=== PATIENT | male | born 1955 | race American Indian/Alaskan Native ===

== ENCOUNTER 2018-04-18 05:49 | Day surgery (SDC) | payer BC ==
[2018-04-05 08:15] VITALS: BMI 24.3
[2018-04-18] MEDS ORDERED: Bupivacaine 0.25% 20 ML INJ IJ ONE ×2 (07:13→09:04)
[2018-04-18] MEDS ORDERED: Lidocaine/Epinephrine 1% 1:100000 10 ML IJ ONE ×2 (07:13→12:26)
[2018-04-18] MEDS ORDERED: ceFAZolin IV 2 gm in Dextrose 2 GM/50 ML BAG IVPB ONE (07:14)
[2018-04-18] MEDS ORDERED: Midazolam 2 MG/2 ML VIAL ONE (08:00)
[2018-04-18] MEDS ORDERED: Propofol 10 mg/ml Inj (20 ML) ONE (08:00)
[2018-04-18] MEDS ORDERED: Succinylcholine Chloride 20 mg/ml Syr (5 ml) IV ONE (08:12)
[2018-04-18] MEDS ORDERED: Rocuronium 10 mg/ml (5 ml) ONE ×3 (08:12→12:04)
[2018-04-18] MEDS ORDERED: Neostigmine Methylsulfate 3mg/3ml Syringe IV ONE (12:25)
[2018-04-18] MEDS ORDERED: HYDROmorphone 0.5 mg/0.5 ml ISec IVP PRN (12:47)
--- NOTE | 2018-04-18 12:49 | PCM.SURG1 ---
Surgeon's Initial Post Op Note - Surgeon's Notes Surgeon: Beth Dental Assisting Instructor: Mil PGY4, Andrew BOSS Type of Anesthesia: General Endo, Local Pre-Operative Diagnosis: B/L inguinal hernia and umbilical hernia Operative Findings: R direct inguinal hernia, L indirect inguinal hernia, Umbilical hernia with diastasis Post-Operative Diagnosis: same Operation Performed: Robotic assisted JOSIAH B/L inguinal hernia repair w. mesh, repair of umbilcal hernia and diastasis w. mesh Specimen/Specimens Removed: hernia sac Estimated Blood Loss: EBL {In ML}: 15 Blood Products Given: N/A Drains Used: No Drains Post-Op Condition: Good Date of Surgery/Procedure: 04/18/18 Time of Surgery/Procedure: 12:50
[2018-04-18 14:36] VITALS: RESP 15; O2SAT 95
[2018-04-18] MEDS ORDERED: Oxycodone/Acetaminophen 5/325 mg Tab PO PRN (15:06)
[2018-04-18] MEDS ORDERED: Oxycodone/Acetaminophen 5/325 mg Tab ONE (15:14)
[2018-04-18 15:55] VITALS: BP 111/69; PULSE 75; TEMP 97.4
--- NOTE | 2018-04-19 00:24 | OP ---
PROCEDURE DATE: 04/18/2018 PREOPERATIVE DIAGNOSES: 1. Bilateral inguinal hernia. 2. Umbilical hernia. 3. Diastasis recti. POSTOPERATIVE DIAGNOSES: 1. Right direct inguinal hernia. 2. Left indirect inguinal hernia. 3. Lipoma of the cord bilaterally. 4. Umbilical hernia. 5. Diastasis recti, approximately 9 x 4 cm size. PROCEDURES DONE: 1. Robotic left inguinal hernia repair with a mesh. 2. Robotic right inguinal hernia repair with a mesh. 3. Robotic excision of the lipoma of the cord bilaterally. 4. Robotic umbilical hernia repair with a mesh. 5. Robotic diastasis recti repair with mesh, 9 x 4 cm size. SURGEON: Francisco Campos MD ASSISTANTS: EMMANUEL Garcia, and Shashank Jaeger, PGY-4 resident. TYPE OF ANESTHESIA: General endotracheal tube anesthesia. ESTIMATED BLOOD LOSS: Around 20 mL. DRAINS: None. PATHOLOGY: 1. The lipoma of the cord of the right and left inguinal hernial sac. 2. Umbilical hernial sac and content. 3. Preperitoneal fat of diastasis recti. COMPLICATIONS: None. INTRAOPERATIVE FINDINGS: The patient had approximately 2 x 2 cm umbilical hernia and a 9 x 4 cm diastasis recti, and the patient had left indirect inguinal hernia and right direct inguinal hernia. DESCRIPTION OF PROCEDURE: On intraoperative steps, this is a 63-year-old male who was diagnosed with bilateral inguinal hernia. The patient also had umbilical hernia and diastasis recti, and the patient was consented for the robotic bilateral inguinal hernia repair with a mesh with umbilical hernia with diastasis recti repair with the mesh, possible open, brought to the OR, placed supine on operating table. After induction of the anesthesia, the abdomen was prepped and draped in the usual sterile fashion. The left upper quadrant incision was made. Using the Visiport technique, peritoneal cavity was entered and pneumo was created. The five 8-mm ports were placed in the upper abdomen. The robot was brought in. Camera arm as well as arm 1 and 2 was ducked, and first the peritoneum was dissected from the right PSIS up to the left PSIS, and dissection was carried down deep up to the space of Retzius, and hemostasis was achieved. Laterally, the peritoneal reflection on the right side was dissected from the vas deferens, and spermatic cord vessel, and the large direct inguinal hernia on the right side was reduced back into the peritoneal cavity. There was also a lipoma of the cord that was also excised from the indirect sac, and now, the direct sac was everted, and it was tacked in the midline, and now the left peritoneal reflection was incised, and the spermatic cord vessels and the vas deferens were dissected from the peritoneal reflection. The indirect hernial sac was reduced back into the peritoneal cavity, and large lipoma of the sac was also excised and it was sent off the table for pathology. Both side inferior dissection was done up to the pelvic brim, and after that, the first left-sided mesh was implanted, and the mesh was placed, and then the right-side mesh was implanted and mesh was placed. After proper implantation of the mesh, the peritoneum was sutured with 2-0 Vicryl as well as a 3-0 V-Loc PDS continuous sutures, and after that, the robot was undocked and robot was re-docked on the left flank for umbilical hernia as well as diastasis recti, and after that, the peritoneum surrounding the umbilical hernia sac and content was excised, and it was reduced back into the peritoneal cavity. The preperitoneal fat surrounding the diastasis recti was also marked, and it was excised and it was sent off the table for pathology. The patient had approximately 9 x 4 cm diastasis recti and 2 x 2 cm umbilical hernia. The first umbilical hernia was repaired. The 2 x 2 cm defect was closed with #1 Prolene V-Loc continuous suture in two layers, and after that, the diastasis recti was also repaired with #1 Prolene V-Loc suture in continuous fashion in two layers, and after diastasis recti repair, the 14 x 8 cm large mesh was introduced, and the mesh was implanted, and after proper implantation of the mesh, the bilateral TAP block was given. After TAP block, the right and left side 30/30 mL of Marcaine was injected, and after that, the specimen was taken out through the right upper quadrant port site, and it was sent off the table for pathology. All the port was closed in two layers; subcu with 2-0 Vicryl, skin with 4-0 Monocryl. Dry, sterile dressing was applied. The patient tolerated the procedure well. Count of the instrument and gauze was correct. There was no apparent complication. The patient was extubated in the OR and sent to the postanesthesia care unit in stable condition. During the diastasis recti repair, the right and left side of the rectus muscles were marked, and the rectus muscles were mobilized medially and approximated in the midline with #1 Prolene V-Loc suture. Francisco Campos MD
== END 2018-04-18 16:00 | disposition home or self-care (01) ==
LOC: C.SDS 05:49
PROVIDERS: ATTEND Surgery Surgical Critical Care
DX: K40.20 Bilateral inguinal hernia, without obstruction or gangrene, not specified as recurrent (principal); K42.9 Umbilical hernia without obstruction or gangrene; M62.08 Separation of muscle (nontraumatic), other site; D17.6 Benign lipomatous neoplasm of spermatic cord
CPT/HCPCS: 49650; 49652; 55520; 88302; 88304; C1781; J0131; J0690; J1885; J2001; J2250; J2405; J2704; J2710; J3010

== ENCOUNTER 2018-04-20 08:49 | Emergency (ER) | payer BC ==
[2018-04-20 08:49] VITALS: BMI 24.3
[2018-04-20] MEDS ORDERED: Morphine 4 MG/ML VIAL ONE ×2 (10:20→15:12)
--- NOTE | 2018-04-20 11:04 | C.PDOC ---
History Of Present Illness 63yo male, currently s/p bilateral inguinal and umbilical hernia repair, performed by Dr. Campos, comes to ER for evaluation of abdominal pain. Patient was discharged home with oxycodone and states he has no relief of symptoms. He spoke to Dr. Campos yesterday and was advised to come to the ER for further evaluation. Otherwise, patient denies any fever, chills, chest pain, vomiting, diarrhea, and offers no additional medical complaints. Time Seen by Provider: 04/20/18 09:03 Chief Complaint (Nursing): Medical Clearance History Per: Patient History/Exam Limitations: no limitations Onset/Duration Of Symptoms: Days Current Symptoms Are (Timing): Still Present Location Of Pain/Discomfort: RLQ, LLQ, Periumbilical Quality Of Discomfort: "Pain" Associated Symptoms: denies: Fever, Chills, Nausea, Vomiting, Diarrhea, Chest Pain, Urinary Symptoms Additional History Per: Patient Past Medical History Reviewed: Historical Data, Nursing Documentation, Vital Signs Vital Signs: Last Vital Signs Temp 97.9 F 04/20/18 08:52 Pulse 98 H 04/20/18 16:37 Resp 20 04/20/18 16:37 BP 128/82 04/20/18 16:37 Pulse Ox 96 04/20/18 17:15 - Medical History PMH: Colonic Polyps, COPD, HTN, Pneumonia (2 years ago) Denies: Chronic Kidney Disease Surgical History: Hernia Repair Family History: States: No Known Family Hx - Social History Hx Alcohol Use: No Hx Substance Use: No - Immunization History Hx Tetanus Toxoid Vaccination: No Hx Influenza Vaccination: No Hx Pneumococcal Vaccination: No Review Of Systems Except As Marked, All Systems Reviewed And Found Negative. Constitutional: Negative for: Fever, Chills Cardiovascular: Negative for: Chest Pain Gastrointestinal: Positive for: Abdominal Pain. Negative for: Nausea, Vomiting , Diarrhea Physical Exam - Physical Exam Appears: Non-toxic, No Acute Distress Skin: Warm, Dry Head: Normacephalic Eye(s): bilateral: Normal Inspection Neck: Supple Chest: Symmetrical Cardiovascular: Rhythm Regular Respiratory: Normal Breath Sounds Gastrointestinal/Abdominal: Bowel Sounds (normal), Soft, No Tenderness, No Mass , No Guarding, No Rebound, Other (+ surgical scar with minimal surrounding swelling noted to umbilicus, and bilateral inguinal region. No dehissence, discharge, or erythema noted.) Neurological/Psych: Oriented x3 ED Course And Treatment - Laboratory Results Result Diagrams: 04/20/18 11:11 04/20/18 11:11 O2 Sat by Pulse Oximetry: 96 (RA) Pulse Ox Interpretation: Normal - CT Scan/US CT Abdomen/Pelvis Other Rad Studies (CT/US): Read By Radiologist, Radiology Report Reviewed CT/US Interpretation: FINDINGS: LOWER THORAX: Right lower lobe atelectasis. LIVER: Hepatic steatosis. No gross lesion or ductal dilatation. GALLBLADDER AND BILE DUCTS: Calcified cholelithiasis without gallbladder wall thickening. PANCREAS: Unremarkable. No gross lesion or ductal dilatation. SPLEEN: Unremarkable. ADRENALS: Bilateral adrenal thickening. No mass. KIDNEYS AND URETERS: 1.4 cm right mid/lower pole cyst. Additional too small to characterize right renal hypodensities. Left upper pole cortical scarring. No hydronephrosis. No solid mass. VASCULATURE: Unremarkable. No aortic aneurysm. BOWEL: Small hiatal hernia. Colonic diverticulosis. Liquified fecal material. No obstruction. No gross mural thickening. APPENDIX: Normal appendix. PERITONEUM: Postsurgical changes in umbilical and bilateral inguinal regions. No free fluid. Scattered subcutaneous emphysema, related to recent laparoscopic procedure. LYMPH NODES: Unremarkable. No enlarged lymph nodes. BLADDER: Unremarkable. REPRODUCTIVE: Unremarkable. BONES: No acute fracture. Grade 1 anterolisthesis of L5 on S1. OTHER FINDINGS: None. IMPRESSION: Status post reported umbilical and bilateral inguinal hernia repair with postsurgical changes. No evidence of intra-abdominal abscess. Medical Decision Making Medical Decision Making: Impression: Post-op pain Plan: 0920 Case discussed with manager surgical, who states he will see patient in room' 1045 Patient seen and evaluated by manager surgical, and he is requesting basic labs -- CMP -- CBC -- Lipase [address] Jevon Shepard and recommends an enema in the ER. If patient has a bowel movement, he can be discharged home. 1713 - patient had bm and cleared by surgery go home. Prescriptions given by surgery Disposition Counseled Patient/Family Regarding: Studies Performed, Diagnosis, Need For Followup - Disposition Referrals: Francisco Campos MD [Staff Provider] - Disposition: HOME/ ROUTINE Disposition Time: 17:14 Condition: STABLE Additional Instructions: follow up with your doctor within 2 days call to make an appointment take medications as prescribed by surgery return to ER if symptoms worsens or progress Prescriptions: Docusate Sodium [Colace] 100 mg PO BID PRN #20 capsule PRN Reason: Constipation Ibuprofen [Motrin Tab] 600 mg PO QID PRN #20 tab PRN Reason: Pain, Moderate (4-7) Magnesium Citrate [Citrate of Magnesia] 100 ml PO DAILY PRN #1000 solution PRN Reason: Constipation Instructions: Constipation in Adults, Acute Abdomen (Belly Pain), Adult (DC) Forms: [facility] ([place]), General Discharge Instructions - Clinical Impression Clinical Impression: Abdominal pain, Constipation - Scribe Statement The provider has reviewed the documentation as recorded by the Alyssa Cooper Provider Attestation: All medical record entries made by the Alyssa were at my direction and personally dictated by me. I have reviewed the chart and agree that the record accurately reflects my personal performance of the history, physical exam, medical decision making, and the department course for this patient. I have also personally directed, reviewed, and agree with the discharge instructions and disposition.
[2018-04-20] MEDS ORDERED: Iohexol 240 (50 ml) PO STA (11:14)
[2018-04-20 11:16] LABS: BASO # 0.1 K/uL (0.0-0.2); BASO % 0.8 % (0.0-2.0); EOS # 0.1 K/uL (0.0-0.7); EOS % 0.6 % (0.0-4.0); HEMOGLOBIN 16.8 g/dL (12.0-18.0); LYMPH # 1.2 K/uL (1.0-4.3); LYMPH % 12.6 % (20.0-40.0); MEAN CORPUSCULAR HEMOGLOBIN 30.8 pg (27.0-31.0); MEAN CORPUSCULAR HGB CONC 34.6 g/dL (33.0-37.0); MEAN PLATELET VOLUME 7.6 fL (7.2-11.7); MONO % 10.6 % (0.0-10.0); NEUT # 7.3 K/uL (1.8-7.0); NEUT % 75.4 % (50.0-75.0); NRBC % 0.1 % (0.0-2.0); RBC 5.47 Mil/uL (4.40-5.90); RED CELL DISTRIBUTION WIDTH 13.6 % (11.5-14.5); WHITE BLOOD COUNT 9.7 K/uL (4.8-10.8)
[2018-04-20] MEDS ORDERED: Iohexol 240 (50 ml) ONE (11:27)
[2018-04-20 11:35] LABS: ALB/GLOB RATIO 1.1 (1.0-2.1); ALBUMIN 4.2 g/dL (3.5-5.0); ALT/SGPT 26 U/L (21-72); AST/SGOT 36 U/L (17-59); BLOOD UREA NITROGEN 8 mg/dL (9-20); CALCIUM 9.4 mg/dl (8.6-10.4); GFR AFRICAN-AMERICAN > 60; GFR NON-AFRICAN AMERICAN > 60; LIPASE 27 U/L (23-300)
[2018-04-20] MEDS ORDERED: Iodixanol 320 MG/ML 100 ML BOTTLE IV ONE (12:20)
--- NOTE | 2018-04-20 13:25 | CT ---
Date of service: 04/20/2018 PROCEDURE: CT Abdomen and Pelvis with contrast HISTORY: s/p hernia repair COMPARISON: None. TECHNIQUE: Contrast dose: Radiation dose: Total exam DLP = mGy-cm. This CT exam was performed using one or more of the following dose reduction techniques: Automated exposure control, adjustment of the mA and/or kV according to patient size, and/or use of iterative reconstruction technique. FINDINGS: LOWER THORAX: Right lower lobe atelectasis. LIVER: Hepatic steatosis. No gross lesion or ductal dilatation. GALLBLADDER AND BILE DUCTS: Calcified cholelithiasis without gallbladder wall thickening. PANCREAS: Unremarkable. No gross lesion or ductal dilatation. SPLEEN: Unremarkable. ADRENALS: Bilateral adrenal thickening. No mass. KIDNEYS AND URETERS: 1.4 cm right mid/lower pole cyst. Additional too small to characterize right renal hypodensities. Left upper pole cortical scarring. No hydronephrosis. No solid mass. VASCULATURE: Unremarkable. No aortic aneurysm. BOWEL: Small hiatal hernia. Colonic diverticulosis. Liquified fecal material. No obstruction. No gross mural thickening. APPENDIX: Normal appendix. PERITONEUM: Postsurgical changes in umbilical and bilateral inguinal regions. No free fluid. Scattered subcutaneous emphysema, related to recent laparoscopic procedure. LYMPH NODES: Unremarkable. No enlarged lymph nodes. BLADDER: Unremarkable. REPRODUCTIVE: Unremarkable. BONES: No acute fracture. Grade 1 anterolisthesis of L5 on S1 OTHER FINDINGS: None. IMPRESSION: Status post reported umbilical and bilateral inguinal hernia repair with postsurgical changes. No evidence of intra-abdominal abscess.
--- NOTE | 2018-04-20 13:28 | CP.PCM.CON ---
<Greyson Merino - Last Filed: 04/20/18 23:58> History of Present Illness - History of Present Illness History of Present Illness: General Surgery Consult Note for Dr. Shepard Reason for Consult: abdominal pain, constipation 63 M with PMH of HTN and COPD presents to [facility] for abdominal pain and constipation. Patient was seen and evaluated in the ED. Patient is s/p robotic bilateral inguinal and umbilical hernia repair with mesh POD#2. Patient tolerated procedure well wihtout complications. Patient was discharged same day with Percocet, miralax and radha-colace prescriptions. Patient states taht he has been taking the Percocet every 6 hours including an extra tab last night since the procedure. Patient states he has been taking miralax as well but no radha-colace because pharmacy did not have it. Patient states that he has had abdominal pain and increasing distention since procedure. He also has not had a BM since Wednesday before operation. He rates pain as moderate. He describes it as constant and aching near radha-umbilical region. He also admits to anorexia. He has eaten some soup and liquids but not much more since Wednesday. Denies fever/ chills, chest pain, SOB, palpitations, nausea/vomiting, diarrhea, incontinence, dysuria, difficulty urinating. PMH: HTN, COPD Meds: As per EMR Allergy: NKDA PSH: robotic bilateral inguinal and umbilical hernia repair with mesh, cervical disc fusion Social: Denies tobacco/EtOH/illicit drug use Review of Systems - Review of Systems All systems: reviewed and no additional remarkable complaints except (as per HPI ) Past Patient History - Past Medical History & Family History Past Medical History?: Yes - Past Social History Smoking Status: Heavy Smoker > 10 Cigarettes Daily - CARDIAC Hx Hypertension: Yes - PULMONARY Hx Chronic Obstructive Pulmonary Disease (COPD): Yes Hx Pneumonia: Yes (2 years ago) - NEUROLOGICAL Hx Neurological Disorder: No - HEENT Hx HEENT Problems: No - RENAL Hx Chronic Kidney Disease: No - ENDOCRINE/METABOLIC Hx Endocrine Disorders: No - HEMATOLOGICAL/ONCOLOGICAL Hx Blood Disorders: No - INTEGUMENTARY Hx Dermatological Problems: No - MUSCULOSKELETAL/RHEUMATOLOGICAL Hx Musculoskeletal Disorders: Yes Hx Back Pain: Yes (cervical) Hx Herniated Disk: Yes (cervical fusion) - GASTROINTESTINAL Hx Gastrointestinal Disorders: Yes (constipation) - GENITOURINARY/GYNECOLOGICAL Hx Genitourinary Disorders: Yes Hx Prostate Problems: Yes - PSYCHIATRIC Hx Substance Use: No - SURGICAL HISTORY Hx Surgeries: Yes Hx Musculoskeletal Surgery: Yes (cervical fusion) Hx Vascular Surgery: Yes (left arm traumatic artery repair) - ANESTHESIA Hx Anesthesia: Yes Hx Anesthesia Reactions: No Hx Malignant Hyperthermia: No Meds Home Medications: Home Medication List Medication Instructions Recorded Confirmed Type Docusate Sodium [Colace] 100 mg PO BID PRN #20 capsule 04/20/18 Rx Ibuprofen [Motrin Tab] 600 mg PO QID PRN #20 tab 04/20/18 Rx Magnesium Citrate [Citrate of 100 ml PO DAILY PRN #1000 solution 04/20/18 Rx Magnesia] Allergies/Adverse Reactions: Allergies Allergy/AdvReac Type Severity Reaction Status Date / Time No Known Allergies Allergy Verified 04/20/18 08:55 Physical Exam - Constitutional Appears: Other (uncomfortable) - Head Exam Head Exam: ATRAUMATIC, NORMOCEPHALIC - Eye Exam Eye Exam: EOMI, Normal appearance Pupil Exam: PERRL - ENT Exam ENT Exam: Mucous Membranes Moist - Respiratory Exam Respiratory Exam: NORMAL BREATHING PATTERN - Cardiovascular Exam Cardiovascular Exam: REGULAR RHYTHM - GI/Abdominal Exam GI & Abdominal Exam: Distended, Guarding (voluntary on deep palpation), Normal Bowel Sounds, Soft, Tenderness (radha-umbilical). absent: Firm, Hernia, Mass, Rebound, Rigid Additional comments: surgical dressings clean dry and intact - Extremities Exam Extremities exam: Positive for: normal capillary refill, pedal pulses present. Negative for: calf tenderness - Back Exam Back exam: absent: CVA tenderness (L), CVA tenderness (R) - Neurological Exam Neurological exam: Alert, Oriented x3 - Psychiatric Exam Psychiatric exam: Normal Affect, Normal Mood - Skin Skin Exam: Dry, Intact, Normal Color, Warm Results - Vital Signs Recent Vital Signs: Last Vital Signs Temp 97.9 F 04/20/18 08:52 Pulse 86 04/20/18 11:13 Resp 18 04/20/18 11:13 BP 122/90 04/20/18 11:13 Pulse Ox 96 04/20/18 11:50 - Labs Result Diagrams: 04/20/18 11:11 04/20/18 11:11 Labs: Laboratory Results - last 24 hr 04/20/18 04/20/18 11:11 11:11 WBC 9.7 RBC 5.47 Hgb 16.8 Hct 48.7 MCV 89.0 MCH 30.8 MCHC 34.6 RDW 13.6 Plt Count 213 MPV 7.6 Neut % (Auto) 75.4 H Lymph % (Auto) 12.6 L Smyth % (Auto) 10.6 H Eos % (Auto) 0.6 Baso % (Auto) 0.8 Neut # (Auto) 7.3 H Lymph # (Auto) 1.2 Smyth # (Auto) 1.0 H Eos # (Auto) 0.1 Baso # (Auto) 0.1 Sodium 142 Potassium 4.2 Chloride 101 Carbon Dioxide 28 Anion Gap 17 BUN 8 L Creatinine 0.7 L Est GFR ( Amer) > 60 Est GFR (Non-Af Amer) > 60 Random Glucose 91 Calcium 9.4 Total Bilirubin 1.0 AST 36 ALT 26 Alkaline Phosphatase 71 Total Protein 8.0 Albumin 4.2 Globulin 3.8 Albumin/Globulin Ratio 1.1 Lipase 27 Assessment & Plan - Assessment and Plan (Free Text) Assessment: 63 M with abdominal pain and constipation Plan: -NPO -CT abd/pelvis with PO & IV contrast (shows constipation and normal post op changes) -Zofran PRN -Analgesics PRN -Fleet enema and Dulcolax suppository -If patient has BM then see if tolerates diet -IF BM and tolerating diet then clear for discharge -When discharged, patient will receive prescription for Mag citrate and radha- colace -Further recommendations as per Dr. Devyn Merino PGY2 - Date & Time Date: 04/20/18 Time: 13:30 <Manny Shepard - Last Filed: 04/21/18 07:56> Results - Vital Signs Recent Vital Signs: Last Vital Signs Temp 98.8 F 04/20/18 17:59 Pulse 89 04/20/18 17:59 Resp 20 04/20/18 17:59 BP 129/89 04/20/18 17:59 Pulse Ox 99 04/20/18 17:59 - Labs Result Diagrams: 04/20/18 11:11 04/20/18 11:11 Labs: Laboratory Results - last 24 hr 04/20/18 04/20/18 11:11 11:11 WBC 9.7 RBC 5.47 Hgb 16.8 Hct 48.7 MCV 89.0 MCH 30.8 MCHC 34.6 RDW 13.6 Plt Count 213 MPV 7.6 Neut % (Auto) 75.4 H Lymph % (Auto) 12.6 L Smyth % (Auto) 10.6 H Eos % (Auto) 0.6 Baso % (Auto) 0.8 Neut # (Auto) 7.3 H Lymph # (Auto) 1.2 Smyth # (Auto) 1.0 H Eos # (Auto) 0.1 Baso # (Auto) 0.1 Sodium 142 Potassium 4.2 Chloride 101 Carbon Dioxide 28 Anion Gap 17 BUN 8 L Creatinine 0.7 L Est GFR ( Amer) > 60 Est GFR (Non-Af Amer) > 60 Random Glucose 91 Calcium 9.4 Total Bilirubin 1.0 AST 36 ALT 26 Alkaline Phosphatase 71 Total Protein 8.0 Albumin 4.2 Globulin 3.8 Albumin/Globulin Ratio 1.1 Lipase 27 Assessment & Plan - Assessment and Plan (Free Text) Plan: I personally saw and examined the patient in the ED with the resident staff and agree with the above assessment and plan. I personally reviewed the available diagnostic images and imaging reports. No acute findings on CT. Large stool burden. Post-op constipation causing obstruction. Evacuation and PO challenge. If pain resolves after bowel evacuation, patient can go home on agnesium citrate PO, Ultram PRN, radha-colace; discontinue percocet. Follow up with Dr. Campos as scheduled. - Date & Time Time: 16:00
[2018-04-20] MEDS ORDERED: Morphine 4 MG/ML VIAL IV STA (14:48)
[2018-04-20 15:15] VITALS: RESP 20
[2018-04-20 18:00] VITALS: BP 129/89; PULSE 89; TEMP 98.8; O2SAT 99
== END 2018-04-20 18:17 | disposition home or self-care (01) ==
LOC: C.ER 08:49
DX: K59.00 Constipation, unspecified (principal); R10.9 Unspecified abdominal pain; I10 Essential (primary) hypertension; F17.210 Nicotine dependence, cigarettes, uncomplicated
CPT/HCPCS: 74177; 80053; 83690; 85025; 96372; 96374; 99285; J2270; J2405; Q9966; Q9967